=== PATIENT | female | born 1960 | race African-American/Black ===

== ENCOUNTER 2018-10-03 10:24 | Day surgery (SDC) | payer OTHER ==
[~2018-10-03 10:24] MED LIST: CALC-178 PO; CARV12.511 PO; CHONDROIT-SOD-HYALURONATE KIT. ONE; CIPROFLOXACIN 0.3% OPHTH SOLUTION 5ML BOTTLE. OS ONE; FURO40TA4 PO; HYDROmorphone 2 MG/ML VIAL IV PRN; IV RINGERS,LACTATED 1000ML 1,000 ML IV SCH; LEVO112T4 PO; LIDOCAINE 1% PF 2 ML VIAL. ID PRN; LIDOCAINE 1% PF 2 ML VIAL. ONE; LISI10TA2 PO; MORPHINE SULFATE 4 MG/ML VIAL. IV PRN; NEO/POLYMYX/DEXAMETH OPHTH OINTMENT 3.5GM TUBE. ONE; ONDANSETRON PF 4 MG/2 ML VIAL. IV PRN; POTA10TA12 PO; PROCHLORPERAZINE 10 MG/2 ML VIAL. IV PRN; PROPARACAINE 0.5% OPHTH SOLUTION 15ML BOTTLE. OS ONE; SIMV20TA3 PO; TRAM50TA PO; fentaNYL PF VIAL 100 MCG/2 ML VIAL IV PRN
[2018-10-03] MEDS: PHENYLEPHRINE 10% OPHTH SOLUTION 5ML BOTTLE. OS SCH ×3 (11:27→11:37)
[2018-10-03] MEDS: CYCLOPENTOLATE 1% OPTH SOLUTION 2ML BOTTLE. OS SCH ×3 (11:38→11:48)
[2018-10-03] MEDS: LIDOCAINE 2% JELLY 6ML IN APPLICATOR. MM SCH ×2 (12:36→12:41)
[2018-10-03 13:28] VITALS: BP 125/66
--- NOTE | 2018-10-03 15:20 | OP ---
DATE OF SURGERY: 10/03/2018 PREOPERATIVE DIAGNOSIS: Significant nuclear and cortical cataract, left eye. POSTOPERATIVE DIAGNOSIS: Significant nuclear and cortical cataract, left eye. PROCEDURE: Phacoemulsification with posterior chamber lens implant with use of VisionBlue, left eye. ANESTHETIC: Topical with MAC. DESCRIPTION OF PROCEDURE: The patient's dilating and anesthetic drops were given in the outpatient department. The patient was then brought to the operating room and positioned on the table. The eye was prepped and draped in the usual sterile manner for an intraocular procedure. A lid speculum placed between the eyelids. The operating microscope was brought into position. It was noted that the pupil was fairly well dilated, but there was significant nuclear and cortical cataract present. The capsulorrhexis was going to be difficult, so I decided to use VisionBlue. A paracentesis incision was made inferotemporally and lidocaine injected in the anterior chamber. This was followed by an injection of air and a Viscoat plug. VisionBlue was then infiltrated over the anterior lens capsule and then, the air was displaced with Viscoat. The primary 2.4-mm incision was made temporally and I was able to perform the capsulorrhexis without difficulty. The lens nucleus was hydrodissected and then phacoemulsified using the phaco handpiece. The remaining cortical material was aspirated with the I/A handpiece. Provisc was used to insufflate the bag and a posterior chamber lens placed into the bag without difficulty. The viscoelastic was aspirated with the I/A handpiece. The wound was hydrated and the intraocular pressure brought to normal. The eye was checked for leaks and there were none. The speculum and drape were removed and Maxitrol ointment instilled in the conjunctival sac and the eye was shielded. The patient was taken to recovery room in satisfactory condition. There were no complications. I will see the patient on Saturday in my office. K YAHAIRA JAMES MD DR: TINY/[email or web address] JOB#: [id number] / [id number]
== END 2018-10-03 13:58 | disposition home or self-care (01) ==
LOC: SURG 10:24
PROVIDERS: ATTEND Ophthalmology
DX: H25.12 Age-related nuclear cataract, left eye (principal); E03.9 Hypothyroidism, unspecified; E78.5 Hyperlipidemia, unspecified; I11.0 Hypertensive heart disease with heart failure; I50.22 Chronic systolic (congestive) heart failure; Z79.899 Other long term (current) drug therapy; Z88.6 Allergy status to analgesic agent; Z88.8 Allergy status to other drugs, medicaments and biological substances
CPT/HCPCS: 66982; C1780; J0171